=== PATIENT | male | born 1955 | race Caucasian/White ===

== ENCOUNTER 2016-05-23 10:33 | Outpatient (CLI) | payer OTHER | END 2016-05-23 10:34 | disposition home or self-care (01) | LOC: NC 10:33 | PROVIDERS: ATTEND Internal Medicine | DX: E11.40 Type 2 diabetes mellitus with diabetic neuropathy, unspecified (principal); Z71.3 Dietary counseling and surveillance; F17.210 Nicotine dependence, cigarettes, uncomplicated; Z68.29 Body mass index [BMI] 29.0-29.9, adult ==

== ENCOUNTER 2016-06-06 13:11 | Outpatient (CLI) | payer OTHER | END 2016-06-06 13:12 | disposition home or self-care (01) | LOC: NC 13:11 | PROVIDERS: ATTEND Internal Medicine | DX: E11.40 Type 2 diabetes mellitus with diabetic neuropathy, unspecified (principal); Z71.3 Dietary counseling and surveillance ==

== ENCOUNTER 2016-06-20 13:55 | Outpatient (CLI) | payer OTHER | END 2016-06-20 13:56 | disposition home or self-care (01) | LOC: NC 13:55 | PROVIDERS: ATTEND Internal Medicine | DX: E11.40 Type 2 diabetes mellitus with diabetic neuropathy, unspecified (principal); Z71.3 Dietary counseling and surveillance; Z79.4 Long term (current) use of insulin ==

== ENCOUNTER 2016-08-13 15:32 | Outpatient (CLI) | payer OTHER | END 2016-08-13 15:33 | disposition home or self-care (01) | LOC: NC 15:32 | PROVIDERS: ATTEND Internal Medicine | DX: E11.40 Type 2 diabetes mellitus with diabetic neuropathy, unspecified (principal); Z71.3 Dietary counseling and surveillance; F17.200 Nicotine dependence, unspecified, uncomplicated; Z79.84 Long term (current) use of oral hypoglycemic drugs; Z68.29 Body mass index [BMI] 29.0-29.9, adult ==